=== PATIENT | female | born 1985 | race Caucasian/White ===

== ENCOUNTER 2024-08-26 19:20 | Observation (INO) | payer OTHER, SELFPAY ==
--- NOTE | ~2024-08-26 | CT_ITS ---
EXAMINATION: CT abdomen pelvis w con DATE: 08/27/2024 01:11 INDICATION: Abdominal pain. Nausea and vomiting. TECHNIQUE: Computed tomography (CT) of the abdomen and pelvis was performed with 100 mL Omnipaque 350 intravenous contrast. Automated exposure control and iterative reconstruction technique were employe d. The dose-length product was 717.25 mGy-cm. COMPARISON: Ultrasound 08/27/2024 FINDINGS: The visualized portions of the lung bases demonstrate mild atelectasis. No pleural effusion . The heart size is normal. No pericardial effusion. The liver is normal. The gallbladder is distende d and contains gallstones. Gallbladder wall thickening is noted. The spleen, pancreas, adrenal glands , and kidneys are normal. There is a 2.8 cm dominant follicle in right ovary. There is physiologic fl uid in the pelvis. There is diverticulosis of the colon without evidence of diverticulitis. The appen mari is normal. There are no dilated loops of bowel. There are no pathologically enlarged lymph nodes. There is lumbar levoscoliosis. There are changes of anterior fusion procedure from T11 to L3 with in strumentation. IMPRESSION: 1. Distended gallbladder with gallstones and gallbladder wall thickening, consistent with acute vijay cystitis. Reviewed, dictated and finalized at location A. VISION PRODUCER IMPRESSION: 1. Distended gallbladder with gallstones and gallbladder wall thickening, consi stent with acute cholecystitis.
--- NOTE | ~2024-08-26 | US_ITS ---
EXAMINATION: US abdomen limited DATE: 08/27/2024 07:45 INDICATION: Acute cholecystitis. TECHNIQUE: Multiple grayscale and Doppler ultrasound images of the abdomen were obtained. COMPARISON: CT abdomen and pelvis 08/27/2024 FINDINGS: The visualized portions of the head and body of the pancreas are normal. The liver is sweta l without focal lesion. There is normal flow in main portal vein. The gallbladder is normal in size a nd contains gallstones. Gallbladder wall thickening is noted. There was no sonographic Garcia's sign. The common duct is normal and measures 6 mm. IMPRESSION: 1. Normal-sized gallbladder with gallstones and gallbladder wall thickening, but no sonographic Dorina y's sign. The findings are consistent with acute versus chronic cholecystitis. Consider hepatobiliary scintigraphy. Reviewed, dictated and finalized at location A. CH OPERATOR IMPRESSION: 1. Normal-sized gallbladder with gallstones and gallbladder wall thickening, bu t no sonographic Garcia's sign. The findings are consistent with acute versus c hronic cholecystitis. Consider hepatobiliary scintigraphy.
--- NOTE | ~2024-08-26 | XR_ITS ---
EXAMINATION: XR chest 1V portable DATE: 08/27/2024 01:28 INDICATION: Shortness of breath. TECHNIQUE: A single frontal view of the chest was obtained. COMPARISON: CT abdomen and pelvis 08/27/2024 FINDINGS: There is mild atelectasis at the lung bases. No pleural effusion or pneumothorax. The heart size is normal. There are changes of anterior fusion procedure in thoracolumbar spine. IMPRESSION: 1. Mild atelectasis at the lung bases. Reviewed, dictated and finalized at location A. CLOSING MACHINE TENDER
[2024-08-26 19:31] VITALS: BP 130/62; PULSE 64; RESP 17; TEMP 36.8; O2SAT 99
[2024-08-26 22:53] LABS: Basophils Percent Auto 0.4 % (0.2-1.2); Eosinophils Absolute Auto 0.5 K/mm3 (0-0.3); Eosinophils Percent Auto 4.6 % (0-4.4); Hematocrit 39.6 % (37.0-47.0); Hemoglobin 12.5 g/dL (12.0-15.0); Immature Granulocyte Absolute 0.03 K/mm3 (0.00-0.031); Immature Granulocyte Percent A 0.3 % (0-0.5); Lymphocytes Absolute Auto 1.96 K/mm3 (0.9-3.2); Lymphocytes Percent Auto 17.2 % (18.3-44.2); Mean Corpuscular HGB Conc 31.6 g/dl (32-36); Mean Corpuscular Hemoglobin 30.3 pg (26-34); Mean Corpuscular Volume 95.9 fl (80-100); Mean Platelet Volume 9.2 fl (7.4-10.4); Monocytes Absolute Auto 0.5 K/mm3 (0.1-0.6); Monocytes Percent Auto 4.6 % (2.6-8.5); Neutrophils Absolute Auto 8.3 K/mm3 (1.3-6.7); Neutrophils Percent Auto 72.9 % (45.5-73.1); Platelet Count Result 243 k/mm3 (150-375); Red Blood Count 4.13 M/mm3 (4.2-5.4); Red Cell Distribution Width 12.5 % (11.5-14.5); White Blood Count 11.4 K/mm3 (4.5-10.0)
[2024-08-26 23:03] LABS: Alanine Aminotransferase 38 U/L (6-35); Albumin Level 3.7 g/dL (3.5-5.1); Alkaline Phosphatase 74 U/L (38-126); Anion Gap 5 mmol/L (4-12); Aspartate Amino Transferase 23 U/L (14-36); Bilirubin,Total 0.5 mg/dL (0.2-1.3); Blood Urea Nitrogen 11 mg/dL (7-17); Calcium 8.7 mg/dL (8.4-10.2); Carbon Dioxide 24 mmol/L (22-30); Chloride 110 mmol/L (98-107); Estimated CRCL calculation 92 ml/min; Estimated Glomerular Filt Rate > 60; Glucose 101 mg/dL (65-110); Lipase 200 U/L (23-300); Potassium 3.7 mmol/L (3.4-5.0); Sodium 139 mmol/L (137-145)
[2024-08-26] MEDS: SODIUM CHLORIDE 0.9% IV 1,000 ML 999 ML IV CONT (23:03)
[2024-08-26] MEDS: ONDANSETRON INJ 4 MG/2 ML VIAL IV PUSH (23:03)
--- NOTE | 2024-08-26 23:33 | PC.NURSE ---
Report received from ARACELI Jung. Assumed care of patient at this time.
[2024-08-27] VITALS (43 sets, daily range): BP systolic 98–123; BP diastolic 51–79; PULSE 59–95; RESP 14–20; TEMP 36–36.7; O2SAT 94–100; BMI 28.0
--- NOTE | 2024-08-27 00:02 | ED_ITS ---
HPI - Abdominal Pain General Chief Complaint: Abdominal Pain <Mami Montemayor APRN - Last Filed: 08/27/24 02:37> Stated Complaint: abdominal pain <Mami Montemayor APRN - Last Filed: 08/27/24 02:37> Time Seen by Provider: 08/26/24 23:15 <Mami Montemayor APRN - Last Filed: 08/27/24 02:37> History of Present Illness HPI narrative: Patient is a 39-year-old female who presents to the ER with complaints of right upper quadrant abdominal pain. She reports she has a history of cholecystitis, but has not seen GI for approximately 1 year. Patient reports approximately 1 week ago she ate cheeseburger and believes this is what caused her gallbladder flare up. She endorses nausea, vomiting, and has been unable to keep any p.o. intake down ?since . Patient reports her abdominal pain radiates to her back. She also reports ?it is difficult to take a deep breath ?and endorses mild shortness of breath. Patient denies having a PCP. She endorses a medical history of spina bifida and cholecystitis. Patient reports when she saw GI they told her they told me that my gallbladder isn't bad enough to take out. <Mami Montemayor APRN - Last Filed: 08/27/24 02:37> Related Data Allergies/Adverse Reactions: Allergies Allergy/AdvReac Type Severity Reaction Status Date / Time codeine Allergy Rash Verified 08/26/24 19:36 Penicillins Allergy Rash Verified 08/26/24 19:36 prochlorperazine AdvReac Unknown Verified 08/26/24 19:36 [From Compazine] <Mami Montemayor APRN - Last Filed: 08/27/24 02:37> Review of Systems Review of Systems: All systems reviewed & are unremarkable except as noted in HPI and below <Mami Montemayor APRN - Last Filed: 08/27/24 02:37> Exam Narrative: GENERAL: Well appearing, well-nourished, non-toxic, in no acute distress. HEAD: Normocephalic, atraumatic. NECK: Supple. No adenopathy, no masses. RESPIRATORY: Airway patent, respirations nonlabored. Clear to auscultation bilaterally, no rales, rhonchi, wheezing. CARDIOVASCULAR: Regular rate and rhythm without murmurs, rubs, or gallops. Peripheral pulses 2+ and equal bilaterally. ABDOMINAL: Soft, tender RUQ, mildly tender with palpation RLQ and LUQ, nondistended, no hepatosplenomegaly. Normoactive BS. MUSCULOSKELETAL: Moves all extremities. Strength/ROM intact without gross deformities. SKIN: Warm, dry, normal color. No rashes. NEURO: A&O X3. Speech clear. Cranial nerves II-XII grossly intact. Steady gait. No ataxic movements. PSYCHIATRIC: Appropriate mood and affect. Normal interaction. <Mami Montemayor APRN - Last Filed: 08/27/24 02:37> Course Course Emergency Course: LUIS FERNANDO 400: Patient signed out to me pending CT imaging. CT showed gallbladder wall thickening to 5 mm with pericholecystic fluid. Patient states she has been having fevers of up to 101 at home. White count elevated 11.4. Patient be started on antibiotics. Patient received pain medication/fluid resuscitation but is endless steamer tender to palpation. Right upper quadrant ultrasound ordered. General surgery consult. Patient placed in hospital for further management of acute cholecystitis. <Gabino Mora MD - Last Filed: 08/27/24 05:10> Vital Signs Vital signs: Vital Signs Temperature 98.2 F 08/26/24 19:31 Pulse Rate 64 08/26/24 19:31 Respiratory Rate 17 08/26/24 19:31 Blood Pressure 130/62 08/26/24 19:31 Pulse Oximetry 99 08/26/24 19:31 Oxygen Delivery Room Air 08/26/24 19:31 Temperature 98.2 F 08/26/24 19:31 Pulse Rate 67 08/27/24 03:00 Respiratory Rate 16 08/27/24 03:00 Blood Pressure 106/55 L 08/27/24 02:31 Pulse Oximetry 97 08/27/24 03:00 Oxygen Delivery Room Air 08/26/24 19:31 <Mami Montemayor APRN - Last Filed: 08/27/24 02:37> Vital Signs Temperature 98.2 F 08/26/24 19:31 Pulse Rate 64 08/26/24 19:31 Respiratory Rate 17 08/26/24 19:31 Blood Pressure 130/62 08/26/24 19:31 Pulse Oximetry 99 08/26/24 19:31 Oxygen Delivery Room Air 08/26/24 19:31 Temperature 98.2 F 08/26/24 19:31 Pulse Rate 67 08/27/24 03:00 Respiratory Rate 16 08/27/24 03:00 Blood Pressure 106/55 L 08/27/24 02:31 Pulse Oximetry 97 08/27/24 03:00 Oxygen Delivery Room Air 08/26/24 19:31 <Gabino Mora MD - Last Filed: 08/27/24 05:10> MDM - Abdominal Pain MDM Narrative Medical decision making narrative: Patient is a 39-year-old female who presents to the ER with complaints of right upper quadrant abdominal pain. She reports she has a history of cholecystitis, but has not seen GI for approximately 1 year. Patient reports approximately 1 week ago she ate cheeseburger and believes this is what caused her gallbladder flare up. She endorses nausea, vomiting, and has been unable to keep any p.o. intake down ?since . Patient reports her abdominal pain radiates to her back. She also reports ?it is difficult to take a deep breath ?and endorses mild shortness of breath. Patient denies having a PCP. She endorses a medical history of spina bifida and cholecystitis. Patient reports when she saw GI they told her they told me that my gallbladder isn't bad enough to take out. Labs Ordered: CBC, CMP, lipase, COVID/flu/RSV, UA Imaging Ordered: Chest x-ray, CT abdomen pelvis with con Results: Patient's CBC indicated white blood cell count 11.4. Her CMP indicates chloride 110, and ALT of 38. Patient's lipase is 200 (WNL). Her urinalysis indicates a UTI, so patient be treated with Bactrim. Her chest x-ray indicates no acute, abnormal findings. Patient's abdominal/pelvis CT scan indicates no acute, abnormal findings. Diagnosis: urinary tract infection, biliary colic Plan: Patient's abdominal discomfort will be treated with morphine and ketorolac in the ER. She will be given 1 L normal saline IV bolus due to the fact that pt endorses vomiting for the past five days. 0130-Results shared with patient. She will be given 1 dose of Bactrim here in the ER and be given a prescription upon discharge. Patient verbalizes understanding. Patient reports her abdominal pain is still ?bringing me to tears, especially when I got on and off the CT scanner. She reports the Morphine didn't really help. Will treat patient with a dose of Dilaudid 0.5mg IV in the ER. 0230-Upon reassessment patient reports her pain is ?much better. She has made aware that he currently waiting for CT scan results. Patient is aware that she will be treated for a urinary tract infection either way. She verbalizes understanding and is in agreement with plan. Care signed out to Dr. Mora. <Mami Montemayor, SPIKE MACHINE FEEDER - Last Filed: 08/27/24 02:37> Patient is a 39-year-old female who presents to the ER with complaints of right upper quadrant abdominal pain. She reports she has a history of cholecystitis, but has not seen GI for approximately 1 year. Patient reports approximately 1 week ago she ate cheeseburger and believes this is what caused her gallbladder flare up. She endorses nausea, vomiting, and has been unable to keep any p.o. intake down ?since . Patient reports her abdominal pain radiates to her back. She also reports ?it is difficult to take a deep breath ?and endorses mild shortness of breath. Patient denies having a PCP. She endorses a medical history of spina bifida and cholecystitis. Patient reports when she saw GI they told her they told me that my gallbladder isn't bad enough to take out. Labs Ordered: CBC, CMP, lipase, COVID/flu/RSV, UA Imaging Ordered: Chest x-ray, CT abdomen pelvis with con Results: Patient's CBC indicated white blood cell count 11.4. Her CMP indicates chloride 110, and ALT of 38. Patient's lipase is 200 (WNL). Her urinalysis indicates a UTI, so patient be treated with Bactrim. Her chest x-ray indicates no acute, abnormal findings. Diagnosis: urinary tract infection, biliary colic Plan: Patient's abdominal discomfort will be treated with morphine and ketorolac in the ER. She will be given 1 L normal saline IV bolus due to the fact that pt endorses vomiting for the past five days. 0130-Results shared with patient. She will be given 1 dose of Bactrim here in the ER and be given a prescription upon discharge. Patient verbalizes understa nding. Patient reports her abdominal pain is still ?bringing me to tears, especially when I got on and off the CT scanner. She reports the Morphine didn't really help. Will treat patient with a dose of Dilaudid 0.5mg IV in the ER. 0230-Upon reassessment patient reports her pain is ?much better. She has made aware that he currently waiting for CT scan results. Patient is aware that she will be treated for a urinary tract infection either way. She verbalizes understanding and is in agreement with plan. Care signed out to Dr. Mora. <Gabino Mora MD - Last Filed: 08/27/24 05:10> Differential Diagnosis Differential diagnosis: Likely abdominal pain, acute appendicitis, constipation, diverticulitis, gastroenteritis, small bowel obstruction and other (ovarian cysts) <Mami Montemayor APRN - Last Filed: 08/27/24 02:37> Lab Data Attestation: I reviewed the patient's lab results. <Mami Montemayor APRN - Last Filed: 08/27/24 02:37> Result diagrams: 08/26/24 22:47 08/26/24 22:47 <Mami Montemayor APRN - Last Filed: 08/27/24 02:37> Labs: Lab Results 08/26/24 08/27/24 08/27/24 Range/Units 22:47 00:08 00:41 WBC 11.4 H (4.5-10.0) K/mm3 RBC 4.13 L (4.2-5.4) M/mm3 Hgb 12.5 (12.0-15.0) g/dL Hct 39.6 (37.0-47.0) % MCV 95.9 (80-100) fl MCH 30.3 (26-34) pg MCHC 31.6 L (32-36) g/dl RDW 12.5 (11.5-14.5) % Plt Count 243 (150-375) k/mm3 MPV 9.2 (7.4-10.4) fl Immature Gran % (Auto) 0.3 (0-0.5) % Neut % (Auto) 72.9 (45.5-73.1) % Lymph % (Auto) 17.2 L (18.3-44.2) % [place] % (Auto) 4.6 (2.6-8.5) % Eos % (Auto) 4.6 H (0-4.4) % Baso % (Auto) 0.4 (0.2-1.2) % Lymph # (Auto) 1.96 (0.9-3.2) K/mm3 [place] # (Auto) 0.5 (0.1-0.6) K/mm3 Eos # (Auto) 0.5 H (0-0.3) K/mm3 Baso # (Auto) 0.0 (0.0-0.1) K/mm3 Abs Immat Gran (auto) 0.03 (0.00-0.031) K/mm3 Absolute Neuts (auto) 8.3 H (1.3-6.7) K/mm3 Absolute Nucleated RBC 0.000 (0.0-0.012) K/mm3 Nucleated RBC % 0.0 (0.0-0.2) % Sodium 139 (137-145) mmol/L Potassium 3.7 (3.4-5.0) mmol/L Chloride 110 H (98-107) mmol/L Carbon Dioxide 24 (22-30) mmol/L Anion Gap 5 (4-12) mmol/L BUN 11 (7-17) mg/dL Creatinine 0.70 (0.7-1.0) mg/dL Estim Creat Clear Calc 92 ml/min Estimated GFR > 60 (59 - ) Glucose 101 (65-110) mg/dL Calcium 8.7 (8.4-10.2) mg/dL Total Bilirubin 0.5 (0.2-1.3) mg/dL AST 23 (14-36) U/L ALT 38 H (6-35) U/L Alkaline Phosphatase 74 (38-126) U/L Total Protein 7.0 (6.3-8.2) g/dL Albumin 3.7 (3.5-5.1) g/dL Lipase 200 (23-300) U/L Urine Color Yellow (Yellow) Urine Appearance Turbid H (Clear) Urine pH 6.0 (5.0-9.0) Ur Specific [place] 1.037 H (1.001-1.035) Urine Protein 1+ H (Negative) mg/dL Urine Glucose (UA) Negative (Negative) mg/dL Urine Ketones Trace H (Negative) mg/dL Ur Blood (Man) Trace (Negative) Urine Nitrate Negative (Negative) Urine Bilirubin Negative (Negative) Urine Urobilinogen 1.0 (<2.0) mg/dL Leukocyte Esterase Rfl 1+ H (Negative) MARYJO/UL Urine RBC 21-50 H (0-2) /hpf Urine WBC 21-50 H (0-3) /hpf Ur Squamous Epith Cells Many H (Few) /hpf Urine Bacteria 4+ H /hpf Urine Casts 3-5 Influenza A (RT-PCR) Negative (Negative) Influenza B (RT-PCR) Negative (Negative) RSV (RT-PCR) Negative (Negative) SARS-CoV-2 RNA (RT-PCR) Negative (Negative) <Mami Montemayor, SPIKE MACHINE FEEDER - Last Filed: 08/27/24 02:37> Lab Results 08/26/24 08/27/24 08/27/24 Range/Units 22:47 00:08 00:41 WBC 11.4 H (4.5-10.0) K/mm3 RBC 4.13 L (4.2-5.4) M/mm3 Hgb 12.5 (12.0-15.0) g/dL Hct 39.6 (37.0-47.0) % MCV 95.9 (80-100) fl MCH 30.3 (26-34) pg MCHC 31.6 L (32-36) g/dl RDW 12.5 (11.5-14.5) % Plt Count 243 (150-375) k/mm3 MPV 9.2 (7.4-10.4) fl Immature Gran % (Auto) 0.3 (0-0.5) % Neut % (Auto) 72.9 (45.5-73.1) % Lymph % (Auto) 17.2 L (18.3-44.2) % [place] % (Auto) 4.6 (2.6-8.5) % Eos % (Auto) 4.6 H (0-4.4) % Baso % (Auto) 0.4 (0.2-1.2) % Lymph # (Auto) 1.96 (0.9-3.2) K/mm3 [place] # (Auto) 0.5 (0.1-0.6) K/mm3 Eos # (Auto) 0.5 H (0-0.3) K/mm3 Baso # (Auto) 0.0 (0.0-0.1) K/mm3 Abs Immat Gran (auto) 0.03 (0.00-0.031) K/mm3 Absolute Neuts (auto) 8.3 H (1.3-6.7) K/mm3 Absolute Nucleated RBC 0.000 (0.0-0.012) K/mm3 Nucleated RBC % 0.0 (0.0-0.2) % Sodium 139 (137-145) mmol/L Potassium 3.7 (3.4-5.0) mmol/L Chloride 110 H (98-107) mmol/L Carbon Dioxide 24 (22-30) mmol/L Anion Gap 5 (4-12) mmol/L BUN 11 (7-17) mg/dL Creatinine 0.70 (0.7-1.0) mg/dL Estim Creat Clear Calc 92 ml/min Estimated GFR > 60 (59 - ) Glucose 101 (65-110) mg/dL Calcium 8.7 (8.4-10.2) mg/dL Total Bilirubin 0.5 (0.2-1.3) mg/dL AST 23 (14-36) U/L ALT 38 H (6-35) U/L Alkaline Phosphatase 74 (38-126) U/L Total Protein 7.0 (6.3-8.2) g/dL Albumin 3.7 (3.5-5.1) g/dL Lipase 200 (23-300) U/L Urine Color Yellow (Yellow) Urine Appearance Turbid H (Clear) Urine pH 6.0 (5.0-9.0) Ur Specific [place] 1.037 H (1.001-1.035) Urine Protein 1+ H (Negative) mg/dL Urine Glucose (UA) Negative (Negative) mg/dL Urine Ketones Trace H (Negative) mg/dL Ur Blood (Man) Trace (Negative) Urine Nitrate Negative (Negative) Urine Bilirubin Negative (Negative) Urine Urobilinogen 1.0 (<2.0) mg/dL Leukocyte Esterase Rfl 1+ H (Negative) MARYJO/UL Urine RBC 21-50 H (0-2) /hpf Urine WBC 21-50 H (0-3) /hpf Ur Squamous Epith Cells Many H (Few) /hpf Urine Bacteria 4+ H /hpf Urine Casts 3-5 Influenza A (RT-PCR) Negative (Negative) Influenza B (RT-PCR) Negative (Negative) RSV (RT-PCR) Negative (Negative) SARS-CoV-2 RNA (RT-PCR) Negative (Negative) <Gabino Mora MD - Last Filed: 08/27/24 05:10> Imaging Data Attestation: I personally reviewed and interpreted this imaging study as follows: <Mami Montemayor APRN - Last Filed: 08/27/24 02:37> Radiologist's impression: Normal appendix, no acute bowel findings, no hydronephrosis, normal bilateral ovaries, fatty liver <Mami Montemayor APRN - Last Filed: 08/27/24 02:37> Discharge Plan Discharge Clinical Impression: Acute cholecystitis <Mami Montemayor APRN - Last Filed: 08/27/24 02:37> Patient Disposition: Home, Self-Care <Mami Montemayor APRN - Last Filed: 08/27/24 02:37> Condition: Stable <Mami Montemayor APRN - Last Filed: 08/27/24 02:37> Instructions: Antibiotic Form, Abdominal Pain (ED) <Mami Montemayor APRN - Last Filed: 08/27/24 02:37> Prescriptions: New sulfamethoxazole-trimethoprim [Bactrim DS] 800-160 mg tablet 1 tablet PO Q12H 5 Days Qty: 10 0RF <Mami Montemayor APRN - Last Filed: 08/27/24 02:37> Follow-up/Referrals: UNKNOWN,DOCTOR [Non-Staff] - <Mami Montemayor APRN - Last Filed: 08/27/24 02:37>
[2024-08-27] MEDS: KETOROLAC 15 MG/ML VIAL (*BKC) IV PUSH (00:20)
[2024-08-27] MEDS: MORPHINE SULFATE (*CRX) 2 MG/ML INJ IV PUSH (00:20)
[2024-08-27 00:50] LABS: Influenza A QL RT-PCR Negative (Negative); Influenza B QL RT-PCR Negative (Negative); RSV RNA, RT-PCR Negative (Negative); SARS-CoV-2 RNA PCR Negative (Negative)
[2024-08-27 00:53] LABS: Add Urine Microscopic? YES; Appearance Urine Turbid (Clear); Bacteria Urine 4+ /hpf; Bilirubin Urine Negative (Negative); Blood Urine Trace (Negative); Color Urine Yellow (Yellow); Glucose Urine UA Negative (Negative); Ketones Urine Trace mg/dL (Negative); Leukocyte Esterase Ur 1+ LEU/UL (Negative); Nitrate Urine Negative (Negative); Protein Urine 1+ mg/dL (Negative); RBC Urine 21-50 /hpf (0-2); Specific Grav Ur 1.037 (1.001-1.035); Squamous Epithelial Cell Urine Many /hpf (Few); WBC Urine 21-50 /hpf (0-3)
[2024-08-27] MEDS: SULFAMETHOXAZOLE/TRIMETHOPRIM 800/160 MG DS TABLET 1 TAB PO (01:35)
[2024-08-27] MEDS: HYDROmorphone HCL INJ (*CRX) 1 MG/ML SYR 0.5 MG IV PUSH ×3 (02:13→22:16)
[2024-08-27] MEDS: CEFEPIME 2 GM/NS 50 ML 2 GM/50 ML BAG IVPB ×3 (03:52→20:13)
[2024-08-27] MEDS: metroNIDAZOLE 500 MG/ISO 100ML 500 MG/100 ML BAG 100 MG IVPB ×3 (04:22→21:04)
[2024-08-27] MEDS: SODIUM CHLORIDE 0.9% IV 1,000 ML 999 ML IV CONT (05:35)
[2024-08-27] MEDS: LACTATED RINGERS 1,000 ML 125 ML IV CONT (07:08)
[2024-08-27] MEDS: ONDANSETRON INJ 4 MG/2 ML VIAL IV PUSH ×3 (07:08→17:33)
--- NOTE | 2024-08-27 08:30 | P.HP_ITS ---
H&P: HPI History of Present Illness Date/Time: 08/27/24 08:30 Chief Complaint: abd pain Narrative: 38 y.o female admitted from ed for right upper quadrant abdominal pain. She reports she has a history of cholecystitis, but was not seen per GI for over a 1 year. Last time she was seen GI, she was told her gallbladder isn't bad enough to take out. About 1 week ago she ate cheeseburger which lead to abd pain, nausea, vomiting. Decreased PO intake since last . Reported fever-up to 101. Patient reports her abdominal pain radiates to her back. She endorses mild shortness of breath-unable to take deep breaths due to pain. Patient denies having a PCP. She endorses a medical history of spina bifida and cholecystitis. wbc elevated. IV fluids started in ed, IV antibiotics started, abd ultrasound done and surgery consulted. pt is a social smoker/drinker. denies any other history Review of Systems Review of Systems: calm and comfortable Constitutional: Constitutional: Reports as per HPI Eyes: Eyes: Denies blurry vision ENT: Denies nasal congestion Cardiovascular: Cardiovascular: Denies chest pain Respiratory: Respiratory: Denies chest congestion Gastrointestinal: Gastrointestinal: Reports abdominal pain PMFSH Social History Social History Smoking status: Current some day smoker Tobacco type: cigarettes Alcohol intake: current Drinks per week: 2 Substance use: never Do You Feel Safe in your Home?: Yes Lack of Transportation: No Lack of Food: Never True Current Housing: I Have Housing Concerned About Future Housing: No Difficulty Paying Gas/Electric Bills: No Difficulty Paying for Meds: No Currently Unemployed: No Education: Bachelor's Degree Difficulty w/ Childcare or Family Care: No Spiritual care concerns: No Meds Home Medications and Allergies Home Medications Medication Instructions Recorded Confirmed Type acetaminophen 500 mg tablet 500 mg PO Q4-6H PRN Pain (Scale 08/27/24 08/27/24 History Score 1-3) hydrocodone 5 mg-acetaminophen 325 1 tablet PO Q6H PRN pain #20 tabs 08/27/24 Rx mg tablet ibuprofen 800 mg tablet 800 mg PO Q4-6H PRN Pain, Mild 08/27/24 08/27/24 History sulfamethoxazole 800 1 tablet PO Q12H 5 days #10 tabs 08/27/24 Rx mg-trimethoprim 160 mg tablet (Bactrim DS) Allergies Allergy/AdvReac Type Severity Reaction Status Date / Time codeine Allergy Rash Verified 08/26/24 19:36 Penicillins Allergy Rash Verified 08/26/24 19:36 prochlorperazine AdvReac Unknown Verified 08/26/24 19:36 [From Compazine] Vital Signs Vital Signs - 24 hr 08/26/24 19:31 08/27/24 01:36 08/27/24 00:55 Temperature 98.2 F Pulse Rate 64 63 Respiratory Rate 17 17 Blood Pressure 130/62 107/63 Pulse Oximetry 99 100 98 Oxygen Delivery Room Air 08/27/24 01:18 08/27/24 01:30 08/27/24 01:34 Temperature Pulse Rate Respiratory Rate Blood Pressure 107/63 Pulse Oximetry 100 98 100 Oxygen Delivery 08/27/24 01:45 08/27/24 01:46 08/27/24 02:00 Temperature Pulse Rate Respiratory Rate Blood Pressure 102/53 L Pulse Oximetry 100 100 98 Oxygen Delivery 08/27/24 02:15 08/27/24 02:30 08/27/24 02:31 Temperature Pulse Rate Respiratory Rate Blood Pressure 106/55 L Pulse Oximetry 98 96 96 Oxygen Delivery 08/27/24 02:45 08/27/24 03:00 08/27/24 06:27 Temperature Pulse Rate 67 61 Respiratory Rate 16 17 Blood Pressure 98/58 L Pulse Oximetry 97 97 99 Oxygen Delivery 08/27/24 03:15 08/27/24 03:16 08/27/24 03:30 Temperature Pulse Rate Respiratory Rate Blood Pressure 104/55 L Pulse Oximetry 96 96 95 Oxygen Delivery 08/27/24 03:45 08/27/24 04:00 08/27/24 04:01 Temperature Pulse Rate Respiratory Rate Blood Pressure 109/53 L Pulse Oximetry 96 97 96 Oxygen Delivery 08/27/24 04:15 08/27/24 04:30 08/27/24 04:45 Temperature Pulse Rate Respiratory Rate Blood Pressure Pulse Oximetry 95 96 96 Oxygen Delivery 08/27/24 04:46 08/27/24 05:00 08/27/24 05:15 Temperature Pulse Rate Respiratory Rate Blood Pressure 98/51 L Pulse Oximetry 96 94 96 Oxygen Delivery 08/27/24 05:30 08/27/24 05:31 08/27/24 05:45 Temperature Pulse Rate Respiratory Rate Blood Pressure 102/52 L Pulse Oximetry 96 96 95 Oxygen Delivery 08/27/24 06:00 08/27/24 06:15 08/27/24 06:16 Temperature Pulse Rate Respiratory Rate Blood Pressure 98/58 L Pulse Oximetry 97 97 97 Oxygen Delivery 08/27/24 06:33 08/27/24 06:46 Temperature 96.8 F L Pulse Rate 60 Respiratory Rate 17 Blood Pressure 98/58 L Pulse Oximetry 97 Oxygen Delivery Exam Narrative: no abd pain if laying still Const: General: comfortable Resp: Effort & Inspection: normal respiratory effort Auscultation: clear to auscultation bilaterally Cardio: Rate: regular rate Rhythm: regular rhythm GI: GI Palp: Yes Tenderness to palpation present (GI) Auscultation: normal bowel sounds Skin: General skin exam: normal color H&P: Results Labs Labs: Short CBC 08/26/24 Range/Units 22:47 WBC 11.4 H (4.5-10.0) K/mm3 Hgb 12.5 (12.0-15.0) g/dL Hct 39.6 (37.0-47.0) % Plt Count 243 (150-375) k/mm3 BMP 08/26/24 22:47 Sodium 139 Potassium 3.7 Chloride 110 H Carbon Dioxide 24 BUN 11 Creatinine 0.70 Glucose 101 Calcium 8.7 Liver Function 08/26/24 Range/Units 22:47 Total Bilirubin 0.5 (0.2-1.3) mg/dL AST 23 (14-36) U/L ALT 38 H (6-35) U/L Alkaline Phosphatase 74 (38-126) U/L Albumin 3.7 (3.5-5.1) g/dL Urine 08/27/24 Range/Units 00:41 Urine Color Yellow (Yellow) Urine Appearance Turbid H (Clear) Urine pH 6.0 (5.0-9.0) Ur Specific [place] 1.037 H (1.001-1.035) Urine Protein 1+ H (Negative) mg/dL Urine Glucose (UA) Negative (Negative) mg/dL Assessment and Plan Assessment and plan (1) Acute cholecystitis: Code(s): K81.0 - Acute cholecystitis Status: Acute Assessment and Plan: IV fluids Pain/ nausea management- morphine, toradol in ed surgery consulted NPO cefepime 2gm q8h, flagyl 500mg q8h (2) UTI (urinary tract infection): Code(s): N39.0 - Urinary tract infection, site not specified Status: Acute Assessment and Plan: was given septra ds dose in ed x 1 continue iv antibiotics for now follow urine culture Plan scd for dvt prophylaxis Quality VTE Prophylaxis VTE prophylaxis: mechanical ordered Hospitalist MIPS Advance Care Plan I have confirmed that the patient's Advanced Care Plan is present, code status is documented, or surrogate decision maker is listed in patient medical record.: Yes Medication Reconciliation I have utilized all available resources to obtain, update and review the patients current medications (includes all prescriptions, OTC, herbals, cannabis, and nutritional supplements).: Yes
--- NOTE | 2024-08-27 11:06 | P.CONGS_ITS ---
Assessment and Plan Assessment and plan (1) Acute cholecystitis: Code(s): K81.0 - Acute cholecystitis Status: Acute Assessment and Plan: Long discussion with patient and she would like to proceed with urgent ch olecystectomy, continue NPO and IV antibiotics for now (2) UTI (urinary tract infection): Code(s): N39.0 - Urinary tract infection, site not specified Status: Acute Assessment and Plan: continue antibiotics per primary team History of Present Illness Consult details Consult date: 08/27/24 Reason for consult: abdominal pain Requesting physician: Latonia Moran DO Narrative: The patient is a 38-year-old female presenting to the emergency department complaining of severe upper abdominal pain, bloating, nausea, anorexia. She reports that the symptoms have been ongoing for the last 3-4 days. The patient reports intermittent similar symptoms over the last 2 years, however nothing this constant or severe. Workup in the emergency department, including imaging, is significant for acute cholecystitis. Review of Systems Review of Systems: All systems reviewed & are unremarkable except as noted in HPI and below PMFSH Social History Social History Smoking status: Current some day smoker Tobacco type: cigarettes Alcohol intake: current Drinks per week: 2 Substance use: never Do You Feel Safe in your Home?: Yes Lack of Transportation: No Lack of Food: Never True Current Housing: I Have Housing Concerned About Future Housing: No Difficulty Paying Gas/Electric Bills: No Difficulty Paying for Meds: No Currently Unemployed: No Education: Bachelor's Degree Difficulty w/ Childcare or Family Care: No Spiritual care concerns: No Meds Home Medications and Allergies Home Medications Medication Instructions Recorded Confirmed Type acetaminophen 500 mg tablet 500 mg PO Q4-6H PRN Pain (Scale 08/27/24 08/27/24 History Score 1-3) ibuprofen 800 mg tablet 800 mg PO Q4-6H PRN Pain, Mild 08/27/24 08/27/24 History sulfamethoxazole 800 1 tablet PO Q12H 5 days #10 tabs 08/27/24 Rx mg-trimethoprim 160 mg tablet (Bactrim DS) Allergies Allergy/AdvReac Type Severity Reaction Status Date / Time codeine Allergy Rash Verified 08/26/24 19:36 Penicillins Allergy Rash Verified 08/26/24 19:36 prochlorperazine AdvReac Unknown Verified 08/26/24 19:36 [From Compazine] Vital Signs Vital Signs - 24 hr 08/26/24 19:31 08/27/24 01:36 08/27/24 00:55 Temperature 36.8 C Pulse Rate 64 63 Respiratory Rate 17 17 Blood Pressure 130/62 107/63 Pulse Oximetry 99 100 98 Oxygen Delivery Room Air 08/27/24 01:18 08/27/24 01:30 08/27/24 01:34 Temperature Pulse Rate Respiratory Rate Blood Pressure 107/63 Pulse Oximetry 100 98 100 Oxygen Delivery 08/27/24 01:45 08/27/24 01:46 08/27/24 02:00 Temperature Pulse Rate Respiratory Rate Blood Pressure 102/53 L Pulse Oximetry 100 100 98 Oxygen Delivery 08/27/24 02:15 08/27/24 02:30 08/27/24 02:31 Temperature Pulse Rate Respiratory Rate Blood Pressure 106/55 L Pulse Oximetry 98 96 96 Oxygen Delivery 08/27/24 02:45 08/27/24 03:00 08/27/24 06:27 Temperature Pulse Rate 67 61 Respiratory Rate 16 17 Blood Pressure 98/58 L Pulse Oximetry 97 97 99 Oxygen Delivery 08/27/24 03:15 08/27/24 03:16 08/27/24 03:30 Temperature Pulse Rate Respiratory Rate Blood Pressure 104/55 L Pulse Oximetry 96 96 95 Oxygen Delivery 08/27/24 03:45 08/27/24 04:00 08/27/24 04:01 Temperature Pulse Rate Respiratory Rate Blood Pressure 109/53 L Pulse Oximetry 96 97 96 Oxygen Delivery 08/27/24 04:15 08/27/24 04:30 08/27/24 04:45 Temperature Pulse Rate Respiratory Rate Blood Pressure Pulse Oximetry 95 96 96 Oxygen Delivery 08/27/24 04:46 08/27/24 05:00 08/27/24 05:15 Temperature Pulse Rate Respiratory Rate Blood Pressure 98/51 L Pulse Oximetry 96 94 96 Oxygen Delivery 08/27/24 05:30 08/27/24 05:31 08/27/24 05:45 Temperature Pulse Rate Respiratory Rate Blood Pressure 102/52 L Pulse Oximetry 96 96 95 Oxygen Delivery 08/27/24 06:00 08/27/24 06:15 08/27/24 06:16 Temperature Pulse Rate Respiratory Rate Blood Pressure 98/58 L Pulse Oximetry 97 97 97 Oxygen Delivery 08/27/24 06:33 08/27/24 06:46 08/27/24 09:00 Temperature 36.0 C L Pulse Rate 60 Respiratory Rate 17 Blood Pressure 98/58 L Pulse Oximetry 97 Oxygen Delivery Room Air Exam Const: General: cooperative, no acute distress and uncomfortable HENMT: Head: normal to inspection, normocephalic and atraumatic Eyes: General: appearance normal, both eyes and all related structures Neck: Neck: normal visual inspection, full ROM and no lymphadenopathy Resp: Auscultation: clear to auscultation bilaterally Cardio: Rate: regular rate Rhythm: regular rhythm GI: Inspection: normal to inspection and distended GI Palp: Yes abdominal tenderness, Yes Soft to palpation, Yes Tenderness to palpation present (GI), No Guarding due to palpation present (GI) and No Rigid due to palpation Skin: General skin exam: normal color and no rashes or lesions noted Neuro: General: patient oriented x3 and CN's II-XI intact bilaterally Extrem: General: normal to inspection and full ROM Results Labs 08/26/24 22:47 08/26/24 22:47 Labs: Abnormal lab results 08/26/24 08/27/24 Range/Units 22:47 00:41 WBC 11.4 H (4.5-10.0) K/mm3 RBC 4.13 L (4.2-5.4) M/mm3 MCHC 31.6 L (32-36) g/dl Lymph % (Auto) 17.2 L (18.3-44.2) % Eos % (Auto) 4.6 H (0-4.4) % Eos # (Auto) 0.5 H (0-0.3) K/mm3 Absolute Neuts (auto) 8.3 H (1.3-6.7) K/mm3 Chloride 110 H (98-107) mmol/L ALT 38 H (6-35) U/L Urine Appearance Turbid H (Clear) Ur Specific [place] 1.037 H (1.001-1.035) Urine Protein 1+ H (Negative) mg/dL Urine Ketones Trace H (Negative) mg/dL Leukocyte Esterase Rfl 1+ H (Negative) MARYJO/UL Urine RBC 21-50 H (0-2) /hpf Urine WBC 21-50 H (0-3) /hpf Ur Squamous Epith Cells Many H (Few) /hpf Urine Bacteria 4+ H /hpf Diabetes panel 08/26/24 Range/Units 22:47 Sodium 139 (137-145) mmol/L Potassium 3.7 (3.4-5.0) mmol/L Chloride 110 H (98-107) mmol/L Carbon Dioxide 24 (22-30) mmol/L BUN 11 (7-17) mg/dL Creatinine 0.70 (0.7-1.0) mg/dL Glucose 101 (65-110) mg/dL Calcium 8.7 (8.4-10.2) mg/dL AST 23 (14-36) U/L ALT 38 H (6-35) U/L Alkaline Phosphatase 74 (38-126) U/L Total Protein 7.0 (6.3-8.2) g/dL Albumin 3.7 (3.5-5.1) g/dL Calcium panel 08/26/24 Range/Units 22:47 Calcium 8.7 (8.4-10.2) mg/dL Albumin 3.7 (3.5-5.1) g/dL Pituitary panel 08/26/24 Range/Units 22:47 Sodium 139 (137-145) mmol/L Potassium 3.7 (3.4-5.0) mmol/L Chloride 110 H (98-107) mmol/L Carbon Dioxide 24 (22-30) mmol/L BUN 11 (7-17) mg/dL Creatinine 0.70 (0.7-1.0) mg/dL Glucose 101 (65-110) mg/dL Calcium 8.7 (8.4-10.2) mg/dL Adrenal panel 08/26/24 Range/Units 22:47 Sodium 139 (137-145) mmol/L Potassium 3.7 (3.4-5.0) mmol/L Chloride 110 H (98-107) mmol/L Carbon Dioxide 24 (22-30) mmol/L BUN 11 (7-17) mg/dL Creatinine 0.70 (0.7-1.0) mg/dL Glucose 101 (65-110) mg/dL Calcium 8.7 (8.4-10.2) mg/dL Total Bilirubin 0.5 (0.2-1.3) mg/dL AST 23 (14-36) U/L ALT 38 H (6-35) U/L Alkaline Phosphatase 74 (38-126) U/L Total Protein 7.0 (6.3-8.2) g/dL Albumin 3.7 (3.5-5.1) g/dL All other labs normal. Imaging Abdomen CT scan report/results: report reviewed and image reviewed Abdominal ultrasound report/results: report reviewed
--- NOTE | 2024-08-27 11:10 | WPDHPUPDATE1 ---
History and Physical Update Update Date/Time: 08/27/24 11:10 History and Physical has been reviewed, including an updated exam of the patient. There are NO changes in the patient's condition. Risks, benefits, and alternatives have been discussed and questions answered. Patient agrees to proceed with procedure.
--- NOTE | 2024-08-27 12:02 | PC.NURSE ---
patient taken down for surgery. report given to Aaron CHARLES
--- NOTE | 2024-08-27 12:12 | P.PNAN_ITS ---
Anes - Initial Pre Proc Eval Procedure: Operation Date: 08/27/24 12:00 Proposed Procedures p Laparoscopic Cholecystectomy - Coco Araujo MD Date/Time: 08/27/24 12:12 Surgeon: Latonia Moran DO Pre Op Diagnosis: Cholecystitis Patient Data Age: 38 Gender: F Height: 1.6 m Weight: 71.7 kg Last Vital Signs Temp 96.8 F L 08/27/24 06:46 Pulse 60 08/27/24 06:33 Resp 17 08/27/24 06:33 BP 98/58 L 08/27/24 06:33 Pulse Ox 95 08/27/24 11:27 O2 Del Method Room Air 08/27/24 11:27 Allergies Allergy/AdvReac Type Severity Reaction Status Date / Time codeine Allergy Rash Verified 08/26/24 19:36 Penicillins Allergy Rash Verified 08/26/24 19:36 prochlorperazine AdvReac Unknown Verified 08/26/24 19:36 [From Compazine] Home Medications Medication Instructions Recorded Confirmed Type acetaminophen 500 mg tablet 500 mg PO Q4-6H PRN Pain (Scale 08/27/24 08/27/24 History Score 1-3) ibuprofen 800 mg tablet 800 mg PO Q4-6H PRN Pain, Mild 08/27/24 08/27/24 History sulfamethoxazole 800 1 tablet PO Q12H 5 days #10 tabs 08/27/24 Rx mg-trimethoprim 160 mg tablet (Bactrim DS) Laboratory Tests 08/26/24 08/27/24 08/27/24 22:47 00:08 00:41 WBC 11.4 H K/mm3 (4.5-10.0) RBC 4.13 L M/mm3 (4.2-5.4) Hgb 12.5 g/dL (12.0-15.0) Hct 39.6 % (37.0-47.0) MCV 95.9 fl (80-100) MCH 30.3 pg (26-34) MCHC 31.6 L g/dl (32-36) RDW 12.5 % (11.5-14.5) Plt Count 243 k/mm3 (150-375) MPV 9.2 fl (7.4-10.4) Immature Gran % (Auto) 0.3 % (0-0.5) Neut % (Auto) 72.9 % (45.5-73.1) Lymph % (Auto) 17.2 L % (18.3-44.2) [place] % (Auto) 4.6 % (2.6-8.5) Eos % (Auto) 4.6 H % (0-4.4) Baso % (Auto) 0.4 % (0.2-1.2) Lymph # (Auto) 1.96 K/mm3 (0.9-3.2) [place] # (Auto) 0.5 K/mm3 (0.1-0.6) Eos # (Auto) 0.5 H K/mm3 (0-0.3) Baso # (Auto) 0.0 K/mm3 (0.0-0.1) Abs Immat Gran (auto) 0.03 K/mm3 (0.00-0.031) Absolute Neuts (auto) 8.3 H K/mm3 (1.3-6.7) Absolute Nucleated RBC 0.000 K/mm3 (0.0-0.012) Nucleated RBC % 0.0 % (0.0-0.2) Sodium 139 mmol/L (137-145) Potassium 3.7 mmol/L (3.4-5.0) Chloride 110 H mmol/L (98-107) Carbon Dioxide 24 mmol/L (22-30) Anion Gap 5 mmol/L (4-12) BUN 11 mg/dL (7-17) Creatinine 0.70 mg/dL (0.7-1.0) Estim Creat Clear Calc 92 ml/min Estimated GFR > 60 (59 - ) Glucose 101 mg/dL (65-110) Calcium 8.7 mg/dL (8.4-10.2) Total Bilirubin 0.5 mg/dL (0.2-1.3) AST 23 U/L (14-36) ALT 38 H U/L (6-35) Alkaline Phosphatase 74 U/L (38-126) Total Protein 7.0 g/dL (6.3-8.2) Albumin 3.7 g/dL (3.5-5.1) Lipase 200 U/L (23-300) Urine Color Yellow (Yellow) Urine Appearance Turbid H (Clear) Urine pH 6.0 (5.0-9.0) Ur Specific [place] 1.037 H (1.001-1.035) Urine Protein 1+ H mg/dL (Negative) Urine Glucose (UA) Negative mg/dL (Negative) Urine Ketones Trace H mg/dL (Negative) Ur Blood (Man) Trace (Negative) Urine Nitrate Negative (Negative) Urine Bilirubin Negative (Negative) Urine Urobilinogen 1.0 mg/dL (<2.0) Leukocyte Esterase Rfl 1+ H MARYJO/UL (Negative) Urine RBC 21-50 H /hpf (0-2) Urine WBC 21-50 H /hpf (0-3) Ur Squamous Epith Cells Many H /hpf (Few) Urine Bacteria 4+ H /hpf Urine Casts 3-5 Influenza A (RT-PCR) Negative (Negative) Influenza B (RT-PCR) Negative (Negative) RSV (RT-PCR) Negative (Negative) SARS-CoV-2 RNA (RT-PCR) Negative (Negative) Patient hx anesthesia problems: none Family hx anesthesia problems: none Results Review: All pre-operative results and documents have been reviewed as part of the pre- operative evaluation. [facility] Social History Social History Smoking status: Current some day smoker Tobacco type: cigarettes Alcohol intake: current Drinks per week: 2 Substance use: never Do You Feel Safe in your Home?: Yes Lack of Transportation: No Lack of Food: Never True Current Housing: I Have Housing Concerned About Future Housing: No Difficulty Paying Gas/Electric Bills: No Difficulty Paying for Meds: No Currently Unemployed: No Education: Bachelor's Degree Difficulty w/ Childcare or Family Care: No Spiritual care concerns: No Anes - Eval Final PreProcedure Day of Procedure 08/27/24 12:12 Patient weight: normal Heart: regular rate and rhythm Lungs: clear to auscultation Airway: Mallampati scale class III Neurological: alert and oriented Last oral intake: >/= 8 hours ASA classification: II Emergent: no Anesthetic plan: proceed Anesthesia type and monitoring: general ETT and standard monitoring Results Review: All pre-operative results and documents have been reviewed as part of the pre- operative evaluation. Pt smokes several cigs/day. Informed Consent: The patient's anesthetic plan and its attendant risks and benefits were discussed with the patient/family/POA. Questions were solicited and answers provided to the satisfaction of the patient/family/POA.
[2024-08-27] MEDS: BUPIVACAINE/EPINEPHRINE 0.5% 50 ML VIAL 30 ML INFILTRATE (12:36)
--- NOTE | 2024-08-27 13:10 | P.OP_ITS ---
Procedure Note - Detailed Date of Procedure 08/27/24 Pre-op Diagnosis acute cholecystitis, cholelithiasis Post-op Diagnosis Same Procedure Performed Laparoscopic cholecystectomy Surgeon Coco Araujo MD Anesthesia General Indications 38-year-old female presenting to the emergency department with acute vijay cystitis, cholelithiasis Findings severe acute cholecystitis, cholelithiasis Description of Procedure The patient was taken to the operating room placed in the supine position. After adequate induction of general anesthesia, the patient was prepped and draped in normal sterile fashion. A time-out was then performed to verify the patient's identity as well as the procedure being performed. I then made a 5 mm incision in the infraumbilical region. Through this, a Veress needle was placed into the peritoneal cavity and CO2 gas was then insufflated. After adequate pneumoperitoneum was achieved, the Veress needle was removed and a 5 mm optiview trocar was placed through this incision under direct visualization. I then placed the laparoscope through this trocar site and under direct visualization placed a further 12 mm subxiphoid port as well as 2 additional 5 mm ports in the right upper abdomen. The gallbladder was then identified and was noted to be severely inflamed, distended, and full of gallstones. I then decompressed the gallbladder to allow manipulation. Very thick bile, sludge was noted at this time. Once decompressed, I was able to place a grasper at the dome of the gallbladder and this was retracted anterior and cephalad up over the liver. A 2nd retractor was then placed at the infundibulum and retracted laterally, this allowed visualization of the triangle of [place]ot. I then was able to visualize the cystic duct in its entirety from its proximal insertion into the gallbladder, to its distal junction with the common hepatic/common bile duct junction. At this point, I carefully skeletonized the proximal cystic duct with the [place] dissector. I then clipped and transected the proximal cystic duct. Next I visualized the cystic artery. Again the artery was skeletonized, clipped, and transected. I then used the Bovie cautery to take down the peritoneal attachments of the gallbladder off the liver bed. This was difficult given the amount of inflammation in the posterior space. Once the gallbladder specimen was completely detached, an endo-pouch was placed through the 12 mm port site. I then placed the gallbladder specimen into the Endo pouch and removed the endo-pouch from the 12 mm port site. The specimen will now be sent to pathology for further review. I then copiously irrigated the right upper quadrant. Some mild oozing was noted in the liver bed and this was controlled with the bovie cautery. Hemostasis was noted in the liver bed, the clips were noted to be in good position on both the cystic duct stump and the cystic artery stump. No other pathology was noted in the right upper quadrant. I then moved the laparoscope to the subxiphoid port. No iatrogenic injury or other pathology was noted in the lower abdomen. I then closed the 12 mm trocar site under direct visualization using the Casey cone and 0 Vicryl suture. At this point, the abdomen was desufflated and all ports removed. All port sites were then closed with 4.O Monocryl subcuticular sutures. Dermabond was placed on each incision. The patient tolerated the procedure well, was extubated in the operating room postoperative and will be transferred to the recovery room in stable condition Estimated Blood Loss 20 Drains No Packing No Pathology Yes Complications No immediate complications Condition Stable Disposition PACU [facility] Billing Surgery - Charge Forward: Surgery Billing
[2024-08-27] MEDS: LACTATED RINGERS 1,000 ML 30 ML IV CONT (13:11)
[2024-08-27] MEDS: fentaNYL CITRATE INJ (*CRX) 100 MCG/2 ML VIAL 25 MCG IV PUSH ×4 (13:31→13:50)
--- NOTE | 2024-08-27 14:44 | PC.NURSE ---
patient returned to room from surgery
[2024-08-27] MEDS: HYDROcodone/acetaminophen (*CRX) 5-325 MG TABLET 1 TAB PO (17:33)
[2024-08-28] MEDS: HYDROmorphone HCL INJ (*CRX) 1 MG/ML SYR 0.5 MG IV PUSH (04:21)
[2024-08-28] MEDS: CEFEPIME 2 GM/NS 50 ML 2 GM/50 ML BAG IVPB ×2 (04:22→12:26)
[2024-08-28] MEDS: metroNIDAZOLE 500 MG/ISO 100ML 500 MG/100 ML BAG 100 MG IVPB (05:12)
[2024-08-28 06:00] VITALS: BP 109/60; PULSE 60; RESP 16; TEMP 36.8; O2SAT 98
[2024-08-28] MEDS: HYDROcodone/acetaminophen (*CRX) 5-325 MG TABLET 1 TAB PO ×2 (09:06→13:13)
--- NOTE | 2024-08-28 09:21 | WPDANESPN ---
Anes - Prog Note Post-Op Date/Time: 08/28/24 09:21 Cardiovascular status: normal Respiratory status: normal Airway patency: baseline Mental status: baseline Post-Op hydration status: normal Vital Signs: Last Vital Signs Temp 98.3 F 08/28/24 06:00 Pulse 60 08/28/24 06:00 Resp 16 08/28/24 06:00 BP 109/60 08/28/24 06:00 Pulse Ox 98 08/28/24 06:00 O2 Del Method Room Air 08/27/24 20:13 O2 Flow Rate 2 08/27/24 14:10 Pain Score (VAS): 0/10 I/O: Intake & Output 08/27/24 08/28/24 08/28/24 23:59 07:59 15:59 Intake Total 250 350 Output Total 0 Balance 250 350 Laboratory Tests 08/26/24 22:47 08/26/24 22:47 Post-procedural complaints: none Patient Feedback: Patient satisfied with anesthetic care.
--- NOTE | 2024-08-28 09:42 | PM.PNGS ---
Progress Note: A&P Assessment and Plan (1) Acute cholecystitis: Code(s): K81.0 - Acute cholecystitis Status: Acute Assessment and Plan: s/p cholecystectomy, doing well, cont routine postop care, ok to dc home from surgical standpoint and f/u 2 wks Subjective Subjective Date/Time Seen: 08/28/24 09:42 Interval history: feels good, mild incisional pain Review of Systems Review of Systems: All systems reviewed & are unremarkable except as noted in HPI and below Exam Const: General: cooperative, comfortable and no acute distress Resp: Auscultation: clear to auscultation bilaterally Cardio: Rate: regular rate Rhythm: regular rhythm GI: Inspection: normal to inspection, non-distended and incision GI Palp: Yes abdominal tenderness, Yes Soft to palpation and Yes Tenderness to palpation present (GI) Objective Data Vital Signs Vital Signs: Vital Signs - 24 hr 08/27/24 11:27 08/27/24 13:11 08/27/24 13:25 Temperature 36.2 C L Pulse Rate 79 69 Respiratory Rate 20 20 Blood Pressure 117/61 109/79 Pulse Oximetry 95 100 100 Oxygen Delivery Room Air Simple Face Mask Simple Face Mask Oxygen Flow Rate 8 8 08/27/24 13:40 08/27/24 13:55 08/27/24 14:10 Temperature Pulse Rate 67 62 81 Respiratory Rate 18 16 18 Blood Pressure 112/68 118/55 L 116/60 Pulse Oximetry 96 97 100 Oxygen Delivery Nasal Cannula Nasal Cannula Nasal Cannula Oxygen Flow Rate 2 2 2 08/27/24 15:00 08/27/24 15:16 08/27/24 22:35 Temperature 36.6 C 36.7 C Pulse Rate 63 59 L 95 Respiratory Rate 14 14 18 Blood Pressure 123/61 113/63 105/60 Pulse Oximetry 95 97 98 Oxygen Delivery Oxygen Flow Rate 08/27/24 20:13 08/28/24 06:00 Temperature 36.8 C Pulse Rate 60 Respiratory Rate 16 Blood Pressure 109/60 Pulse Oximetry 98 Oxygen Delivery Room Air Oxygen Flow Rate Intake/Output Intake/Output: Intake & Output 08/25/24 08/26/24 08/27/24 08/28/24 23:59 23:59 23:59 23:59 Intake Total 2049 350 Output Total 0 Balance 2049 350 Meds/Results Medications: Active Medications Generic Name Dose Route Start Last Admin Trade Name Freq PRN Reason Stop Dose Admin Acetaminophen 500 mg 08/27/24 14:11 Acetaminophen 500 Mg Tablet PO Q4-6H PRN Pain (Scale Score 1-3) Hydrocodone Bitart/Acetaminophen 1 tab 08/27/24 14:11 08/28/24 09:06 Hydrocodone/Acetaminophen (*Crx) 5-325 Mg Tablet PO 1 tab Q4H PRN Administration Pain Rated 4-6 Hydromorphone HCl 0.5 mg 08/27/24 05:10 08/28/24 04:21 Hydromorphone Hcl Inj (*Crx) 1 Mg/Ml Syr IV PUSH 0.5 mg Q4H PRN Administration Pain Rated 7-10 Cefepime HCl 2 gm in 50 mls @ 100 mls/hr 08/27/24 12:00 08/28/24 04:52 Maxipime 2 Gm/Ns 50 Ml IVPB Infused Q8H JESSIKA Infusion Metronidazole 500 mg in 100 mls @ 100 mls/hr 08/27/24 14:00 08/28/24 06:12 Flagyl 500 Mg/Iso Soln 100 Ml IVPB Infused Q8HR JESSIKA Infusion Ondansetron HCl 4 mg 08/27/24 05:10 08/27/24 17:33 Ondansetron Inj 4 Mg/2 Ml Vial IV PUSH 4 mg Q4H PRN Administration Nausea Radiology Results: ITS Impressions Chest X-Ray 08/27/24 07:04 IMPRESSION: 1. Mild atelectasis at the lung bases. Abdomen Ultrasound 08/27/24 07:50 IMPRESSION: 1. Normal-sized gallbladder with gallstones and gallbladder wall thickening, but no sonographic Garcia's sign. The findings are consistent with acute versus chronic cholecystitis. Consider hepatobiliary scintigraphy. Abdomen/Pelvis CT 08/27/24 08:19 IMPRESSION: 1. Distended gallbladder with gallstones and gallbladder wall thickening, consistent with acute cholecystitis.
--- NOTE | 2024-08-28 12:29 | P.DS_ITS ---
DS: Admitting Diagnosis Discharge Date 08/28 Admitting Diagnosis abd pain DS: Discharge Diagnosis Discharge Diagnosis (1) Acute cholecystitis: Code(s): K81.0 - Acute cholecystitis Status: Acute (2) UTI (urinary tract infection): Code(s): N39.0 - Urinary tract infection, site not specified Status: Acute DS: Summary Hospital Course Hospital Course: 38 y.o female admitted from ed for right upper quadrant abdominal pain. She reports she has a history of cholecystitis, but was not seen per GI for over a 1 year. Last time she was seen GI, she was told her gallbladder isn't bad enough to take out. Laparoscopic cholecystectomy 08/28. stable and ok to go home as tolerated food well. Status at Discharge Functional status at discharge: independent ambulation Overall status at discharge: patient is progressing back to baseline Time Spent with Patient Time attestation: Total time spent providing and/or coordinating discharge services: Time spent: Greater than 30 minutes Exam Narrative: calm, comfortable Const: General: comfortable Resp: Effort & Inspection: normal respiratory effort Auscultation: clear to auscultation bilaterally Cardio: Rate: regular rate Rhythm: regular rhythm GI: GI Palp: Yes Soft to palpation Auscultation: normal bowel sounds Skin: General skin exam: normal color DS: Data Data Completed and Pending Pending studies at discharge: Pending at discharge 08/27/24 12:34 Surgical [PTH] Routine Discharge Plan Discharge Attending physician on discharge: Jose Curiel Consulting providers: Kalen Stanford; Coco Araujo Discharging Clinician: Daylin Chang Patient Disposition: Home, Self-Care Activity: as tolerated Diet: as tolerated and low fat Wound Care Instructions: incision open to air Discharge Instructions: you were admitted for cholecystitis. Had Laparoscopic cholecystectomy with Dr Araujo. Your lab came back positive for uti- so please finish your bactrum. F.u with surgery as instructed- in 2 weeks. DISCHARGE INSTRUCTION SHEET FOR HERNIA, GALLBLADDER AND APPENDIX SURGERIES DR. ARAUJO 1. May shower in 24 hours, no soaking in bath x 2weeks. 2. Call office for: * Wound increasingly painful or bleeding * Vomiting * Fever of greater than 101 degrees 3. If no bowel movement for three days, take 1 oz. (30 ml) Milk of Magnesia or MiraLax 17g 1 to 2 times daily. 4. No heavy lifting > 10-15 pounds x 6 weeks for hernia repairs and 2 weeks for laparoscopic cholecystectomy or appendectomy. 5. No driving for 3 days or while taking narcotic pain medications. 6. Ice to surgical site for 48 hours (30 min on, then 30 min off). 7. Up walking 10-30 minutes three times per day. 8. Resume previous home medications. 9. Follow-up 10-14 days in office for wound check or as previously scheduled. ([phone]) 10. Oral pain medications prescription to be sent to pharmacy. Take Tylenol 500mg every 6 hours and Ibuprofen 600mg every 6 hours for the first 2 days, then as needed. 11. NUTRITION: Start out by drinking fluids and increase your diet as tolerated. If you experience nausea, try dry toast, crackers, and 7-UP. If nausea or vomiting persists, contact your surgeon?s office. 12. Gallbladders-Low Fat Diet for 2 weeks (send care note of low fat diet) 13. Inguinal Hernias-wear scrotal support for 48 hours 14. Abdominal Hernias-if sent home with abdominal binder, wear for the first 2 weeks (may remove to shower or at night to sleep). Revised 09/2020 Patient Instructions: Antibiotic Form Stand Alone Forms: General Discharge Information Follow-up/Referrals: Coco Araujo MD [Physician] - 2 Weeks Discharge Medications: New sulfamethoxazole-trimethoprim [Bactrim DS] 800-160 mg tablet 1 tablet PO Q12H 5 Days Qty: 10 0RF hydrocodone-acetaminophen 5-325 mg tablet 1 tablet PO Q6H PRN (Reason: pain) Qty: 20 0RF No Action ibuprofen 800 mg Tablet 800 mg PO Q4-6H PRN (Reason: Pain, Mild) acetaminophen 500 mg Tablet 500 mg PO Q4-6H PRN (Reason: Pain (Scale Score 1-3)) Date of admission: 08/27/24 05:10 Primary Care Provider: PHYSICIAN,STORE OPERATIONS ASSOCIATE Admitting Provider: Latonia Moran Attending physician on admission: Latonia Moran Condition: Stable Quality VTE Prophylaxis VTE prophylaxis: mechanical ordered Hospitalist MIPS Heart Failure (Exclusion) Patient has history of Heart Transplant or Left Ventricular Assistive Device?: No IF YES, STOP HERE Heart Failure (Qualifier) Patient has current or prior documentation of LVEF less than or equal to 40%, or mod/servere depressed LVSF?: No IF NO, STOP HERE
== END 2024-08-28 13:19 | disposition home or self-care (01) ==
LOC: ANHED 08-27 01:58 → ANH2MED 08-27 06:34
PROVIDERS: Emergency Medicine; Surgery; Admitting Provider Internal Medicine; Emergency Provider Registered Nurse; Visit Provider Internal Medicine
PROC: 0FT44ZZ Resection of Gallbladder, Percutaneous Endoscopic Approach (ICD-10-PCS; CPT 47562; principal; 2024-08-27 12:00)
DX: K80.00 Calculus of gallbladder with acute cholecystitis without obstruction (principal); N39.0 Urinary tract infection, site not specified; F17.210 Nicotine dependence, cigarettes, uncomplicated; Z20.822 Contact with and (suspected) exposure to COVID-19
CPT/HCPCS: 47562; 36415; 71045; 74177; 76705; 80053; 81001; 83690; 85025; 87086; 87637; 88304; 96361; 96365; 96367; 96374; 96375; 99285; A9270; G0378; J0692; J1100; J1171; J1836; J1885; J2250; J2270; J2405; J2704; J3010; J7030; J7120; Q9967